=== PATIENT | male | born 1960 | race Caucasian/White ===

== ENCOUNTER → 2019-02-11 10:42 | Outpatient (CLI) | payer OTHER, SELFPAY ==
[2019-02-11 11:41] LABS: Absolute Lymphocyte Count 1.32 X10^3/ul (0.83-4.51); Absolute Neutrophil Count 4.2 X10^3/uL (2.0-7.7); Basophil# 0.04 X10^3/uL; Basophil% 0.6 % (0-1); Eosinophil# 0.17 X10^3/uL; Eosinophils% 2.7 % (0-5); Hematocrit 47.1 % (40-54); Hemoglobin 15.9 g/dl (13.0-16.5); Lymphocyte # 1.32 X10^3/ul (4.0); Lymphocyte % 21.1 % (19-41); Mean Corp Hgb Conc 33.8 g/gl (32-36); Mean Corpuscular Hgb 31.2 pg (27.0-32.0); Mean Corpuscular Volume 92.5 fL (80-94); Mean Platelet Vol. 10.9 fl (6.2-12.0); Neutrophil % 67.3 % (47-70); Platelet Count 239 K/mm3 (150-450); RBC Distribution Width CV 13.3 % (11.6-14.6); RBC Distribution Width SD 45.3 fl (35.1-43.9); Red Blood Count 5.09 M/mm3 (4.6-6.2); White Blood Count 6.3 K/mm3 (4.4-11.0)
[2019-02-11 11:45] LABS: POSITIVE COUNT NO; POSITIVE DIFFERENTIAL NO; POSITIVE MORPHOLOGY NO
[2019-02-11 11:57] LABS: Hemoglobin A1c 9.4 % (4.2-6.3)
[2019-02-11 11:59] LABS: Microalbumin,Random Urine < 5.0 mg/L (NO RANGE EST.)
[2019-02-11 12:15] LABS: ALB/GLOB Ratio 1.1 RATIO (0.9-2.4); AST(SGOT) 18 U/L (15-37); Alanine Aminotransfer ALT/SGPT 25 U/L (16-61); Albumin, Serum 3.5 g/dL (3.2-5.0); Alkaline Phosphatase 90 U/L (45-117); Anion Gap 7 (5-15); BUN 15 mg/dL (7-18); BUN/Creat Ratio 17.6 RATIO (10-20); Calcium,Total 8.5 mg/dL (8.5-10.1); Chloride 106 mmol/L (98-107); Cholesterol 192 mg/dL (200); Creatinine, Serum 0.85 mg/dL (0.70-1.30); EST Glomerular Filtration Rate 99 mL/min (>60); Est Glom Filt Rate - Afr Amer 119 mL/min (>60); Globulin 3.2 g/dL (2.2-4.2); Glucose 245 mg/dL (74-106); High Density Lipoprotein 57 mg/dL; Potassium 4.6 mmol/L (3.5-5.1); Protein, Total 6.7 g/dL (6.4-8.2); Sodium Level 139 mmol/L (136-145); T4 Free Direct 0.97 ng/dL (0.76-1.46); Thyroid Stim Hormone (TSH) 1.45 uIU/mL (0.358-3.74); Triglycerides 91 mg/dL; Very Low Density Lipoprotein 18 mg/dL (5-40)
[2019-02-11 12:16] LABS: T3 Total - Triiodothyronine 1.11 ng/mL (0.6-1.81)
== END ==
PROVIDERS: Family Provider Family Medicine; PCP Family Medicine; Referring Provider Family Medicine; Visit Provider Family Medicine
DX: E11.9 Type 2 diabetes mellitus without complications (principal); E03.9 Hypothyroidism, unspecified; E78.5 Hyperlipidemia, unspecified; E66.9 Obesity, unspecified; R53.82 Chronic fatigue, unspecified
CPT/HCPCS: 36415; 80053; 80061; 82043; 82570; 83036; 84439; 84443; 84480; 85025

== ENCOUNTER → 2019-09-27 11:25 | Outpatient (CLI) | payer OTHER, SELFPAY ==
[2019-09-27 12:48] LABS: Anion Gap 6 (5-15); BUN 18 mg/dL (7-18); BUN/Creat Ratio 20.7 RATIO (10-20); Calcium,Total 8.8 mg/dL (8.5-10.1); Chloride 110 mmol/L (98-107); Creatinine, Serum 0.87 mg/dL (0.70-1.30); EST Glomerular Filtration Rate 96 mL/min (>60); Est Glom Filt Rate - Afr Amer 116 mL/min (>60); Glucose 110 mg/dL (74-106); Potassium 3.6 mmol/L (3.5-5.1); Sodium Level 141 mmol/L (136-145)
[2019-09-27 13:18] LABS: Hemoglobin A1c 9.2 % (4.2-6.3)
== END ==
PROVIDERS: Family Provider Family Medicine; PCP Family Medicine
DX: E10.65 Type 1 diabetes mellitus with hyperglycemia (principal); E03.9 Hypothyroidism, unspecified; E78.00 Pure hypercholesterolemia, unspecified; Z96.41 Presence of insulin pump (external) (internal)
CPT/HCPCS: 36415; 80048; 83036

== ENCOUNTER → 2020-05-25 09:49 | Outpatient (CLI) | payer OTHER, SELFPAY ==
[2020-05-25 10:53] LABS: Absolute Lymphocyte Count 1.32 X10^3/uL (0.83-4.51); Absolute Neutrophil Count 3.8 X10^3/uL (2.0-7.7); Basophil# 0.03 X10^3/uL; Basophil% 0.5 % (0-1); Eosinophil# 0.17 X10^3/uL; Eosinophils% 2.8 % (0-5); Hematocrit 51.3 % (40-54); Hemoglobin 16.9 g/dL (13.0-16.5); Lymphocyte # 1.32 X10^3/ul (4.0); Mean Corp Hgb Conc 32.9 g/dL (32-36); Mean Corpuscular Hgb 31.7 pg (27.0-32.0); Mean Corpuscular Volume 96.2 fL (80-94); Mean Platelet Vol. 10.6 fl (6.2-12.0); Monocyte# 0.66 X10^3/uL; NRBC Flagged by Analyzer 0 % (0-5); Neutrophil # 3.78 X10^3/uL (2.7-7.7); Neutrophil % 63.2 % (47-70); Platelet Count 265 K/mm3 (150-450); RBC Distribution Width CV 12.7 % (11.6-14.6); RBC Distribution Width SD 44.8 fl (35.1-43.9); Red Blood Count 5.33 M/mm3 (4.6-6.2)
[2020-05-25 12:00] LABS: Microalbumin,Random Urine 29.9 mg/L (NO RANGE EST.); Microalbumin:Creatinine Ratio 32.7 mg/g CRE (<30 mg/g CRE)
[2020-05-25 12:12] LABS: ALB/GLOB Ratio 1.1 RATIO (0.9-2.4); AST(SGOT) 19 U/L (15-37); Alanine Aminotransfer ALT/SGPT 31 U/L (16-61); Albumin, Serum 3.8 g/dL (3.2-5.0); Alkaline Phosphatase 142 U/L (45-117); Anion Gap 4 (5-15); BUN 11 mg/dL (7-18); BUN/Creat Ratio 12.2 RATIO (10-20); Calcium,Total 9.2 mg/dL (8.5-10.1); Chloride 107 mmol/L (98-107); Cholesterol 182 mg/dL (200); EST Glomerular Filtration Rate 92 mL/min (>60); Est Glom Filt Rate - Afr Amer 111 mL/min (>60); Globulin 3.6 g/dL (2.2-4.2); Glucose 41 mg/dL (74-106); High Density Lipoprotein 50 mg/dL; Potassium 4.2 mmol/L (3.5-5.1); Protein, Total 7.4 g/dL (6.4-8.2); Sodium Level 140 mmol/L (136-145); Thyroid Stim Hormone (TSH) 1.48 uIU/mL (0.358-3.74); Triglycerides 181 mg/dL; Very Low Density Lipoprotein 36 mg/dL (5-40)
== END ==
PROVIDERS: PCP Family Medicine
DX: E10.65 Type 1 diabetes mellitus with hyperglycemia (principal); E03.9 Hypothyroidism, unspecified; E78.00 Pure hypercholesterolemia, unspecified; Z96.41 Presence of insulin pump (external) (internal)
CPT/HCPCS: 36415; 80053; 80061; 82043; 82570; 83036; 84443; 85025

== ENCOUNTER → 2020-11-03 12:46 | Outpatient (CLI) | payer OTHER, SELFPAY ==
[2020-11-03 13:44] LABS: Anion Gap 5 (5-15); BUN 19 mg/dL (7-18); BUN/Creat Ratio 21.6 RATIO (10-20); Calcium,Total 8.6 mg/dL (8.5-10.1); Chloride 105 mmol/L (98-107); Creatinine, Serum 0.88 mg/dL (0.70-1.30); EST Glomerular Filtration Rate 95 mL/min (>60); Est Glom Filt Rate - Afr Amer 114 mL/min (>60); Glucose 210 mg/dL (74-106); Potassium 3.8 mmol/L (3.5-5.1); Sodium Level 136 mmol/L (136-145)
[2020-11-03 13:47] LABS: Microalbumin,Random Urine < 5.0 mg/L (NO RANGE EST.)
[2020-11-03 13:51] LABS: Hemoglobin A1c 9.3 % (3.8-5.6)
== END ==
PROVIDERS: PCP Family Medicine
DX: E10.65 Type 1 diabetes mellitus with hyperglycemia (principal); Z96.41 Presence of insulin pump (external) (internal); E03.9 Hypothyroidism, unspecified; E10.40 Type 1 diabetes mellitus with diabetic neuropathy, unspecified
CPT/HCPCS: 36415; 80048; 82043; 82570; 83036

== ENCOUNTER → 2021-05-03 11:38 | Outpatient (CLI) | payer OTHER, SELFPAY ==
[2021-05-03 13:04] LABS: Hemoglobin A1c 10.1 % (3.8-5.6)
[2021-05-03 13:12] LABS: Anion Gap 8 (5-15); BUN 23 mg/dL (7-18); BUN/Creat Ratio 26.5 RATIO (10-20); Calcium,Total 8.7 mg/dL (8.5-10.1); Chloride 101 mmol/L (98-107); Creatinine, Serum 0.87 mg/dL (0.70-1.30); EST Glomerular Filtration Rate 96 mL/min (>60); Est Glom Filt Rate - Afr Amer 116 mL/min (>60); Glucose 219 mg/dL (74-106); Potassium 4.4 mmol/L (3.5-5.1); Sodium Level 136 mmol/L (136-145); Thyroid Stim Hormone (TSH) 2.07 uIU/mL (0.358-3.74)
== END ==
PROVIDERS: PCP Family Medicine
DX: E10.65 Type 1 diabetes mellitus with hyperglycemia (principal); Z96.41 Presence of insulin pump (external) (internal); E03.9 Hypothyroidism, unspecified; E78.00 Pure hypercholesterolemia, unspecified
CPT/HCPCS: 36415; 80048; 83036; 84443

== ENCOUNTER 2021-10-14 14:20 | Emergency (ER) | payer OTHER, SELFPAY ==
[2021-10-14 14:21] VITALS: BP 122/83; PULSE 99; RESP 18; TEMP 35.8; O2SAT 100; BMI 29.5
--- NOTE | 2021-10-14 14:39 | EDS_ITS ---
HPI History of Present Illness Chief Complaint: Weakness Detail of Chief Complaint: Weakness, cough, fever Informant: patient Narrative Narrative: Patient presents with symptoms of weakness and cough and intermittent headache for the last week. Patient states initially when his symptoms started he had fever up to 103. Patient has not had his COVID-vaccine. He denies any COVID exposures. He is a type I diabetic. Patient states his blood sugars have been running in the 150s. He is complaining of some nausea and upset stomach. He denies abdominal pain. He denies vomiting or diarrhea. [facility] Medical History (Updated 10/14/21 @ 15:[address] Leonela Rice, DO) Diabetes Allergy/AdvReac Type Severity Reaction Status Date / Time No Known Allergies Allergy Verified 10/14/21 14:23 Social History Smoking Status: Never smoker ROS ROS ED ROS Narrative Loss of taste Constitutional Constitutional ED: Reports systems reviewed and no addt'l complaints, except as documented and fever(s); Denies body ache(s), change in weight or chills Eyes Eyes: Denies acute decrease in peripheral vision, change in vision, double vision or loss of vision ENT ENT ED: Reports none; Denies ear pain, lip swelling, loss taste/smell, neck pain, otalgia or sore throat Cardiovascular Cardiovascular: Reports none; Denies abdominal pain, chest pain with activity, leg edema, lightheadedness, palpitations, rapid heart rate or syncope Respiratory/Chest Respiratory/Chest: Reports none and cough; Denies change in mental status, dry cough, dyspnea, hemoptysis, shortness of breath at rest or shortness of breath with exertion Gastrointestinal Gastrointestinal: Reports none; Denies abdominal pain, change in stool character, diarrhea, hematemesis, hematochezia, melena, rectal bleeding or vomiting Genitourinary Genitourinary ED: Reports none; Denies abdominal discomfort, anuria, dysuria, genital pain or polyuria Musculoskeletal Musculoskeletal: Reports none; Denies arthralgias, back pain, difficulty walking, extremity pain, muscle weakness or myalgias Integumentary Reports none; Denies abscess or rash Neurologic Neurologic: Reports none, headache(s) and weakness; Denies abnormal gait, confusion, focal weakness, frequent falls, loss of vision, numbness, paresthesias, radicular pain or vertigo Psychiatric Psychiatric: Reports systems reviewed and no addt'l complaints, except as documented and none; Denies behavioral changes, confusion, difficulty concentrating, hallucinations, suicidal ideation, tactile hallucinations or vi sual hallucinations Endocrine Endocrinology: Denies none, cold intolerance, excessive sweating, fatigue or heat intolerance Hematologic/Lymphatic Hematologic/Lymphatic: Reports none; Denies anemia, easy bleeding or easy bruising Allergic/Immunologic Allergic/Immunologic ED: Denies as per HPI, none, lip swelling, mouth swelling, throat swelling, tongue swelling or hives EXAM Physical Exam Const Vital Signs: 10/14/21 14:21 10/14/21 14:51 Temperature 96.5 F L Temperature Source Temporal Pulse Rate 99 Respiratory Rate 18 Respiratory Pattern Normal Blood Pressure 122/83 H Blood Pressure Mean 96 Pulse Ox 100 Oxygen Delivery Method Room Air Positive well nourished and well developed General Appearance ED: well developed and NAD HEENT Reports TM's clear and moist mucous membranes normocephalic and atraumatic; Negative for trauma or tenderness Tympanic Membrane ED: Yes TM's clear Eyes PERRL and EOMs intact bilaterally General Eye ED: Negative for pale conjunctiva or scleral icterus Neck no lymphadenopathy, supple and no JVD General: Negative for tenderness Chest Wall inspection of chest normal and palpation of chest normal Chest: Negative for tenderness Resp normal respiratory effort and clear to auscultation bilaterally Effort and Inspection: Negative for respiratory distress or pain with movement Auscultation: Negative for rhonchi, wheezes or diminished lung sounds Cardio regular rate, regular rhythm, S1 normal heart sound, S2 normal heart sound and no murmurs Peripheral Pulses: pulses 2+ throughout GI normal to inspection, nondistended, normoactive bowel sounds, soft to palpation, non-tender, non-distended and no masses Back/Spine no CVA tenderness and no thoracic nor lumbar tenderness Extremity normal to inspection General Extremety ED: Negative for edema General Extremity: Negative for edema Neuro oriented x3, CN's II-XII intact bilaterally, no sensory deficits noted and gait normal Sensorium / Orientation: awake, alert, oriented to person, oriented to place and oriented to time Motor Exam: strength 5/5 throughout and strength abnormal Psych mental status grossly normal Skin no rashes or lesions noted and no wounds MDM MDM MDM Narrative Medical decision making narrative: Patient positive for COVID-19. His vital signs are unremarkable. He is not hypoxic or dyspneic. Given his diabetes history I will refer him for monoclonal antibody infusion. Patient advised to return if increasing shortness of breath or condition should worsen anyway. Lab Data Attestation: I reviewed the patient's lab results. Discharge Plan Triage Chief Complaint: Weakness ED Provider: Leonela Rice Dx/Rx/DC Orders Clinical Impression: COVID-19 Instructions: Caring for Someone Who Has COVID-19 Primary Care Provider: Paul Hughes Referrals: Paul Hughes MD [Primary Care Provider] - 5-7 Days Disposition Disposition: Home, Self Care
[2021-10-14 15:56] VITALS: RESP 18; O2SAT 98
== END 2021-10-14 15:57 | disposition home or self-care (01) ==
PROVIDERS: Emergency Provider Emergency Medicine; PCP Family Medicine; Visit Provider Emergency Medicine
DX: U07.1 COVID-19 (principal); E10.9 Type 1 diabetes mellitus without complications; Z79.4 Long term (current) use of insulin
CPT/HCPCS: 87426; 99282

== ENCOUNTER 2021-10-15 16:16 | Outpatient (CLI) | payer OTHER, SELFPAY ==
[2021-10-15 16:31] VITALS: BP 125/73; PULSE 97; RESP 18; TEMP 36.8; O2SAT 99; BMI 29.5
[2021-10-15] MEDS: 0.9% Saline Lock 10 ML Syringe IV (16:37)
[2021-10-15 17:27] VITALS: BP 118/72; PULSE 81; RESP 16; TEMP 36.9; O2SAT 99
[2021-10-15 18:23] VITALS: BP 131/75; PULSE 93; RESP 16; TEMP 36.9; O2SAT 100
== END 2021-10-15 23:59 | disposition home or self-care (01) ==
LOC: MS3OUT 16:16 → MS3 16:17
PROVIDERS: PCP Family Medicine; Referring Provider Emergency Medicine; Visit Provider Emergency Medicine
DX: U07.1 COVID-19 (principal)
CPT/HCPCS: J7050; M0243; A4216; Q0244

== ENCOUNTER → 2022-05-08 | Outpatient (CLI) | payer OTHER, SELFPAY ==
[2022-05-08 13:39] LABS: Hemoglobin A1c 9.6 % (3.8-5.6)
[2022-05-08 13:51] LABS: Microalbumin:Creatinine Ratio 5.4 mg/g CRE (<30 mg/g CRE)
== END | disposition home or self-care (01) ==
DX: E10.3299 Type 1 diabetes mellitus with mild nonproliferative diabetic retinopathy without macular edema, unspecified eye (principal)
CPT/HCPCS: 36415; 82043; 82570; 83036

== ENCOUNTER → 2022-05-09 | Outpatient (CLI) | payer OTHER, SELFPAY ==
[2022-05-09 15:23] LABS: Anion Gap 7 (5-15); BUN 22 mg/dL (7-18); BUN/Creat Ratio 23.1 RATIO (10-20); Calcium,Total 8.5 mg/dL (8.5-10.1); Chloride 106 mmol/L (98-107); Creatinine, Serum 0.95 mg/dL (0.70-1.30); EST Glomerular Filtration Rate 86 mL/min (>60); Est Glom Filt Rate - Afr Amer 104 mL/min (>60); Glucose 226 mg/dL (74-106); Potassium 3.8 mmol/L (3.5-5.1); Sodium Level 138 mmol/L (136-145)
== END | disposition home or self-care (01) ==
DX: E10.3299 Type 1 diabetes mellitus with mild nonproliferative diabetic retinopathy without macular edema, unspecified eye (principal)
CPT/HCPCS: 80048

== ENCOUNTER 2022-10-03 01:05 | Emergency (ER) | payer OTHER, SELFPAY ==
[2022-10-03 01:06] VITALS: BP 170/87; PULSE 101; RESP 16; TEMP 36.4; O2SAT 98; BMI 27.5
[2022-10-03 01:09] VITALS: O2SAT 98
--- NOTE | 2022-10-03 01:09 | EKG12_ITS ---
Test Reason : CP Blood Pressure : / mmHG Vent. Rate : 096 BPM Atrial Rate : 096 BPM P-R Int : 144 ms QRS Dur : 064 ms QT Int : 336 ms P-R-T Axes : 056 039 032 degrees QTc Int : 424 ms Normal sinus rhythm Septal infarct , age undetermined Abnormal ECG Confirmed by MEGAN BRUNO, KIRAN ([id number]), news editor JHONNY BRAR ([id number]) on 10/08/2022 12:25:07 PM Referred By: AVERY Confirmed By:KIRAN GUZMAN MD
--- NOTE | 2022-10-03 01:09 | RAD_ITS ---
EXAM: XR CHEST, 1 VIEW CLINICAL INDICATION: chest pain TECHNIQUE: Frontal view of the chest. This report was created using [employer] report generation technology. COMPARISON: None. FINDINGS: LUNGS AND PLEURAL SPACES: Slightly increased density overlies the anterior right fifth and sixth ribs, most likely due to sclerosis from old rib fractures; infiltrate such as pneumonia felt less likely. No pneumothorax. No effusion. HEART: Unremarkable. Cardiac silhouette not enlarged. Normal pulmonary vasculature. MEDIASTINUM: Thoracic aorta is minimally elongated. BONES/JOINTS: Multiple well-healed right rib fractures are present. There is also a well-healed fracture of the lateral left seventh rib. Thoracic degenerative spurring. SOFT TISSUES: Unremarkable. RAD/Chest 1 View (Portable) IMPRESSION: Slightly increased density overlying the anterior right fifth and sixth ribs, most likely due to old rib fractures with pneumonia felt less likely. Follow-up PA and lateral views may be of benefit for further evaluation, if clinical problems persist. Electronically Signed: Emigdio Abdalla MD at 2:22 EST ,
[2022-10-03] MEDS: Aspirin 81 MG TAB.CHEW 324 MG PO (01:14)
[2022-10-03 01:19] LABS: Absolute Lymphocyte Count 0.81 X10^3/uL (0.83-4.51); Absolute Neutrophil Count 8.4 X10^3/uL (2.0-7.7); Basophil# 0.05 X10^3/uL; Basophil% 0.5 % (0-1); Hemoglobin 15.6 g/dL (13.0-16.5); Lymphocyte # 0.81 X10^3/ul (0.83-4.51); Lymphocyte % 8.1 % (19-41); Mean Corp Hgb Conc 34.7 g/dL (32-36); Mean Corpuscular Hgb 32.2 pg (27.0-32.0); Mean Corpuscular Volume 92.8 fL (80-94); Mean Platelet Vol. 9.7 fl (6.2-12.0); Monocyte# 0.64 X10^3/uL; Monocyte% 6.4 % (0-10); NRBC Flagged by Analyzer 0 % (0-5); Neutrophil % 83.8 % (47-70); Platelet Count 249 K/mm3 (150-450); RBC Distribution Width CV 12.8 % (11.6-14.6); RBC Distribution Width SD 43.7 fl (35.1-43.9); Red Blood Count 4.85 M/mm3 (4.6-6.2)
--- NOTE | 2022-10-03 01:24 | ED.VIS.CHEST ---
HPI History of Present Illness Chief Complaint: Chest Pain Narrative Narrative: 62-year-old male past medical history of diabetes presents with chest pain that began around 1115 last evening, almost 2 hours ago. States it lasted until about midnight so 45 minutes of a dull achy pain that went across his chest. He denies any nausea or vomiting. No diaphoresis. He may have felt slightly short of breath. He has family history of hypertension and notes that his blood pressure has been elevated the last few times but does not currently take any medications for it. He denies any family history of sudden or early coronary artery disease. No leg swelling. He is currently pain-free. He presents because of the chest pain that he experienced across his chest this evening. There were no exacerbating or alleviating factors and it resolved on its own. [facility] Medical History Diabetes Home Medications insulin lispro 100 unit/mL subcutaneous solution (Humalog U-100 Insulin) 10/15/21 [History Last Taken Unknown] levothyroxine 125 mcg tablet (Synthroid) 125 mcg PO DAILY 10/15/21 [History Last Taken Unknown] simvastatin 40 mg tablet 40 mg PO QHS 10/15/21 [History Last Taken Unknown] Allergy/AdvReac Type Severity Reaction Status Date / Time No Known Allergies Allergy Verified 10/03/22 01:08 Social History Smoking Status: Never smoker ROS ROS ED ROS Narrative Constitutional: No fever, no chills. HEENT: No sore throat. No neck pain. No loss of vision. No rhinorrhea. Cardiovascular: Dull, achy across the chest type of chest pain. Resolved after 45 minutes. No palpitations. No pedal edema. Respiratory: No cough, minimal to mild shortness of breath. Abdominal: No abdominal pain. No nausea. No vomiting. Genitourinary: No dysuria. No hematuria. Musculoskeletal: No myalgias. No arthralgias. Neurologic: No headaches. No dizziness. No lightheadedness. Skin: No rash. No change in color. Psychiatric: No depression. No anxiety. EXAM Physical Exam Narrative Exam Narrative: Afebrile. Vital signs noted. HEENT: Normocephalic. Atraumatic. PERRL, EOMI. Neck soft and supple. No point tenderness or step off. Cardiovascular: Regular rate and rhythm with intermittent tachycardia. No murmurs, rubs, or gallops appreciated. Respiratory: No tachypnea. Lungs clear to auscultation bilaterally. Gastrointestinal: Abdomen soft, nontender, with normoactive bowel sounds. No rebound or guarding. Neurological: Awake. Alert. Nonfocal, nonlateralizing. Skin: No rash. Normal color. No pallor. Musculoskeletal: No pedal edema. Full range of motion extremities. Const Vital Signs: 10/03/22 01:06 10/03/22 01:08 10/03/22 01:09 Temperature 97.6 F L Temperature Source Temporal Pulse Rate 101 H Respiratory Rate 16 Respiratory Effort Normal Non-Labored Blood Pressure 170/87 H Blood Pressure Mean 114 Pulse Ox 98 98 Oxygen Delivery Method Room Air Room Air 10/03/22 02:06 10/03/22 03:23 Temperature Temperature Source Pulse Rate 94 97 Respiratory Rate 12 12 Respiratory Effort Blood Pressure 144/91 H 129/71 H Blood Pressure Mean 108 90 Pulse Ox 95 98 Oxygen Delivery Method Room Air Room Air Heart Score History: Slightly/Non-Suspicious ECG: Normal Age: >45 - <65 years Risk Factors: 1 or 2 Risk Factors Troponin: </= Normal Limit Score: 2 MDM MDM MDM Narrative Medical decision making narrative: Chest pain work-up was pursued. He was administered aspirin orally. His EKG interpreted by myself demonstrates normal sinus rhythm at 96 bpm without ectopy or acute ST changes. No STEMI. CBC shows normal white count of 10.0 with hemoglobin normal at 15.6, hematocrit 45.0. Platelet count normal at 249. Pulse ox is 98% on room air without evidence of hypoxia. CMP shows sodium of 129 and a chloride of 95. Glucose is elevated at 684 but he has a normal anion gap of 14. BUN of 33 and creatinine 1.25, normal. He was bolused normal saline 1 L intravenously. He elected to give himself a bolus of 10 units from his insulin pump. His initial high-sensitivity troponin is 5. Second troponin is pending. Glucose will be rechecked after IV fluids and his own insulin pump bolus. Blood pressure has come down to 129/71 without any medication. Chest x-ray interpreted by myself shows no acute process. Second troponin is 6 for a delta troponin of 1. At this point in time, I feel he can be discharged safely home with follow-up to his primary care provider. Regarding his blood sugar, his bedside glucose is in the 500s. He will be bolused himself from his insulin pump. It is headed in the right direction and he feels well enough to go home. I feel he can be discharged safely home with follow-up. He is to call his electrical designer drafter later today to get better control of his elevated blood sugars. Once again, I do not feel he is in diabetic ketoacidosis as he had a normal anion gap. Return instructions to the emergency department were reviewed. Disposition is discharged home in stable condition. Lab Data Attestation: I reviewed the patient's lab results. Labs: Laboratory Results - last 24 hr 10/03/22 10/03/22 10/03/22 01:15 01:15 02:00 WBC 10.0 RBC 4.85 Hgb 15.6 Hct 45.0 MCV 92.8 MCH 32.2 H MCHC 34.7 RDW Std Deviation 43.7 RDW Coeff of Meme 12.8 Plt Count 249 MPV 9.7 Immature Gran % (Auto) 0.200 Neut % (Auto) 83.8 H Lymph % (Auto) 8.1 L Kern % (Auto) 6.4 Eos % (Auto) 1.0 Baso % (Auto) 0.5 Absolute Neuts (auto) 8.4 H Absolute Lymphs (auto) 0.81 L Nucleated RBC % 0 Sodium 129 L Potassium 5.1 Chloride 95 L Carbon Dioxide 20.0 L Anion Gap 14 BUN 33 H Creatinine 1.25 Estim Creat Clear Calc 62.84 Est GFR (MDRD) Af Amer 76 Est GFR (MDRD) Non-Af 63 BUN/Creatinine Ratio 26.4 H Glucose 684 H* Calcium 9.0 Total Bilirubin 1.50 H AST 30 ALT 38 Alkaline Phosphatase 196 H Troponin I High Sens 5 Total Protein 7.3 Albumin 4.1 Globulin 3.2 Albumin/Globulin Ratio 1.3 POC Glucose > 500 H* 10/03/22 10/03/22 03:22 03:42 WBC RBC Hgb Hct MCV MCH MCHC RDW Std Deviation RDW Coeff of Meme Plt Count MPV Immature Gran % (Auto) Neut % (Auto) Lymph % (Auto) Kern % (Auto) Eos % (Auto) Baso % (Auto) Absolute Neuts (auto) Absolute Lymphs (auto) Nucleated RBC % Sodium Potassium Chloride Carbon Dioxide Anion Gap BUN Creatinine Estim Creat Clear Calc Est GFR (MDRD) Af Amer Est GFR (MDRD) Non-Af BUN/Creatinine Ratio Glucose Calcium Total Bilirubin AST ALT Alkaline Phosphatase Troponin I High Sens 6 Total Protein Albumin Globulin Albumin/Globulin Ratio POC Glucose > 500 H* Radiography Diagnostic Testing: Clinical Impression(s) from Imaging Studies Chest X-Ray 10/03/22 01:09 IMPRESSION: Slightly increased density overlying the anterior right fifth and sixth ribs, most likely due to old rib fractures with pneumonia felt less likely. Follow-up PA and lateral views may be of benefit for further evaluation, if clinical problems persist. Electronically Signed: Emigdio Abdalla MD at 2:22 EST , Discharge Plan Triage Chief Complaint: Chest Pain ED Provider: Alfredo Bolaños Dx/Rx/DC Orders Clinical Impression: Chest pain, Hyperglycemia due to diabetes mellitus Prescriptions: No Action simvastatin 40 mg tablet 40 mg PO QHS Label Comments: TAKE 1 TABLET BY MOUTH AT BEDTIME levothyroxine [Synthroid] 125 mcg tablet 125 mcg PO DAILY Label Comments: TAKE 1 TABLET BY MOUTH DAILY insulin lispro [Humalog U-100 Insulin] 100 unit/mL solution Label Comments: for use up to 120 units daily Primary Care Provider: Care Physician,No Primary Referrals: Care Physician,No Primary [Primary Care Provider] - Activity Restrictions/Additional Instructions: Call your electrical designer drafter today to get better control of your elevated blood sugars. Disposition Disposition: Home, Self Care
[2022-10-03 01:47] LABS: ALB/GLOB Ratio 1.3 RATIO (0.9-2.4); AST(SGOT) 30 U/L (15-37); Alanine Aminotransfer ALT/SGPT 38 U/L (16-61); Albumin, Serum 4.1 g/dL (3.2-5.0); Alkaline Phosphatase 196 U/L (45-117); Anion Gap 14 (5-15); BUN 33 mg/dL (7-18); BUN/Creat Ratio 26.4 RATIO (10-20); Chloride 95 mmol/L (98-107); Creatinine, Serum 1.25 mg/dL (0.70-1.30); EST Glomerular Filtration Rate 63 mL/min (>60); Est Glom Filt Rate - Afr Amer 76 mL/min (>60); Estimated Creatinine Clearance 62.84 ml/min; Globulin 3.2 g/dL (2.2-4.2); Glucose 684 mg/dL (74-106); Potassium 5.1 mmol/L (3.5-5.1); Protein, Total 7.3 g/dL (6.4-8.2); Sodium Level 129 mmol/L (136-145); Troponin-I HS (w/2H Reflex) 5 pg/mL (3.0-78.0)
[2022-10-03] MEDS: 0.9% Normal Saline 1,000 ML 999 ML IV (02:02)
[2022-10-03 02:06] VITALS: BP 144/91; PULSE 94; RESP 12; O2SAT 95
[2022-10-03 02:20] LABS: Bedside Glucose > 500 mg/dL (74-106)
[2022-10-03 03:17] LABS: Reflex Troponin-HS? (from REC) Y
[2022-10-03 03:23] VITALS: BP 129/71; PULSE 97; RESP 12; O2SAT 98
[2022-10-03 04:01] LABS: Bedside Glucose > 500 mg/dL (74-106)
[2022-10-03 04:11] LABS: Troponin-I HS 6 pg/mL (3.0-78.0)
[2022-10-03] MEDS: Ondansetron 4 MG/2 ML Vial IV (04:21)
[2022-10-03 04:25] VITALS: BP 137/75; PULSE 81; RESP 16; O2SAT 96
== END 2022-10-03 04:26 | disposition home or self-care (01) ==
PROVIDERS: Emergency Provider Emergency Medicine; Visit Provider Emergency Medicine
DX: E11.65 Type 2 diabetes mellitus with hyperglycemia (principal); Z96.41 Presence of insulin pump (external) (internal); R07.9 Chest pain, unspecified
CPT/HCPCS: 71045; 80053; 82962; 84484; 85025; 93005; 99284; A4216; J2405

== ENCOUNTER → 2023-02-28 | Outpatient (CLI) | payer OTHER, SELFPAY ==
[2023-02-28 16:56] LABS: Hematocrit 48.4 % (40-54); Mean Corp Hgb Conc 33.1 g/dL (32-36); Mean Corpuscular Hgb 30.8 pg (27.0-32.0); Mean Corpuscular Volume 93.1 fL (80-94); Mean Platelet Vol. 10.5 fl (6.2-12.0); Platelet Count 282 K/mm3 (150-450); RBC Distribution Width CV 13.3 % (11.6-14.6); RBC Distribution Width SD 45.1 fl (35.1-43.9); White Blood Count 7.3 K/mm3 (4.4-11.0)
[2023-02-28 17:44] LABS: Hemoglobin A1c 8.9 % (3.8-5.6)
[2023-02-28 17:48] LABS: ALB/GLOB Ratio 1.1 RATIO (0.9-2.4); AST(SGOT) 14 U/L (15-37); Alanine Aminotransfer ALT/SGPT 24 U/L (16-61); Albumin, Serum 3.8 g/dL (3.2-5.0); Alkaline Phosphatase 100 U/L (45-117); Anion Gap 5 (5-15); BUN 22 mg/dL (7-18); Calcium,Total 9.1 mg/dL (8.5-10.1); Chloride 103 mmol/L (98-107); Cholesterol 188 mg/dL (200); EST Glomerular Filtration Rate 81 mL/min (>60); Est Glom Filt Rate - Afr Amer 98 mL/min (>60); Globulin 3.4 g/dL (2.2-4.2); Glucose 287 mg/dL (74-106); High Density Lipoprotein 71 mg/dL; Potassium 4.1 mmol/L (3.5-5.1); Protein, Total 7.2 g/dL (6.4-8.2); Sodium Level 136 mmol/L (136-145); Triglycerides 70 mg/dL; Very Low Density Lipoprotein 14 mg/dL (5-40)
== END | disposition home or self-care (01) ==
LOC: LAB 16:27
DX: E10.3299 Type 1 diabetes mellitus with mild nonproliferative diabetic retinopathy without macular edema, unspecified eye (principal)
CPT/HCPCS: 36415; 80053; 80061; 83036; 85027

== ENCOUNTER → 2023-12-23 | Outpatient (CLI) | payer OTHER, SELFPAY ==
[2023-12-23 15:44] LABS: Microalbumin,Random Urine 8.8 mg/L (NO RANGE EST.); Microalbumin:Creatinine Ratio 7.9 mg/g CRE (<30 mg/g CRE)
[2023-12-23 16:48] LABS: Anion Gap 8 (5-15); BUN 20 mg/dL (7-18); BUN/Creat Ratio 24.8 RATIO (10-20); Chloride 107 mmol/L (98-107); Creatinine, Serum 0.81 mg/dL (0.70-1.30); EST Glomerular Filtration Rate 103 mL/min (>60); Est Glom Filt Rate - Afr Amer 125 mL/min (>60); Glucose 50 mg/dL (74-106); Potassium 3.7 mmol/L (3.5-5.1); Sodium Level 141 mmol/L (136-145); Thyroid Stim Hormone (TSH) 2.02 uIU/mL (0.358-3.74)
== END | disposition home or self-care (01) ==
LOC: LAB 14:46
DX: E10.3299 Type 1 diabetes mellitus with mild nonproliferative diabetic retinopathy without macular edema, unspecified eye (principal); E03.8 Other specified hypothyroidism; E06.3 Autoimmune thyroiditis
CPT/HCPCS: 36415; 80048; 82043; 82570; 84443

== ENCOUNTER → 2024-11-18 | Outpatient (CLI) | payer OTHER, SELFPAY ==
[2024-11-18 12:41] LABS: Hematocrit 52.3 % (40-54); Mean Corp Hgb Conc 32.5 g/dL (32-36); Mean Corpuscular Hgb 31.4 pg (27.0-32.0); Mean Corpuscular Volume 96.7 fL (80-94); Mean Platelet Vol. 11.2 fl (6.2-12.0); Platelet Count 186 K/mm3 (150-450); RBC Distribution Width CV 13.3 % (11.6-14.6); RBC Distribution Width SD 47.8 fl (35.1-43.9); Red Blood Count 5.41 M/mm3 (4.6-6.2); White Blood Count 8.7 K/mm3 (4.4-11.0)
[2024-11-18 13:11] LABS: Microalbumin,Random Urine 67.2 mg/L (NO RANGE EST.); Microalbumin:Creatinine Ratio 23.7 mg/g CRE (<30 mg/g CRE)
[2024-11-18 13:15] LABS: AST(SGOT) 21 U/L (15-37); Alanine Aminotransfer ALT/SGPT 26 U/L (16-61); Albumin, Serum 3.6 g/dL (3.2-5.0); Alkaline Phosphatase 108 U/L (45-117); Anion Gap 8 (5-15); BUN 19 mg/dL (7-18); BUN/Creat Ratio 19.2 RATIO (10-20); Calcium,Total 8.9 mg/dL (8.5-10.1); Chloride 105 mmol/L (98-107); Cholesterol 180 mg/dL (200); Creatinine, Serum 0.99 mg/dL (0.70-1.30); EST Glomerular Filtration Rate 81 mL/min (>60); Est Glom Filt Rate - Afr Amer 98 mL/min (>60); Globulin 3.7 g/dL (2.2-4.2); Glucose 322 mg/dL (74-106); High Density Lipoprotein 55 mg/dL; Potassium 4.4 mmol/L (3.5-5.1); Protein, Total 7.3 g/dL (6.4-8.2); Sodium Level 134 mmol/L (136-145); Thyroid Stim Hormone (TSH) 0.962 uIU/mL (0.358-3.740); Triglycerides 139 mg/dL; Very Low Density Lipoprotein 28 mg/dL (5-40)
== END | disposition home or self-care (01) ==
LOC: LAB 11:53
DX: E10.3299 Type 1 diabetes mellitus with mild nonproliferative diabetic retinopathy without macular edema, unspecified eye (principal)
CPT/HCPCS: 36415; 80053; 80061; 82043; 82570; 84443; 85027

== ENCOUNTER → 2025-08-12 | Outpatient (CLI) | payer OTHER, SELFPAY ==
[2025-08-12 17:47] LABS: Anion Gap 18 (5-15); BUN 14 mg/dL (4-19); BUN/Creat Ratio 20.2 RATIO (10-20); Calcium,Total 8.8 mg/dL (7.6-11.0); Carbon Dioxide 15.3 mmol/L (21.0-32.0); Chloride 105 mmol/L (98-108); Glucose 83 mg/dL (70-99); Potassium 4.0 mmol/L (3.3-5.1)
== END | disposition home or self-care (01) ==
LOC: LAB 15:57
DX: E06.3 Autoimmune thyroiditis (principal); E10.3299 Type 1 diabetes mellitus with mild nonproliferative diabetic retinopathy without macular edema, unspecified eye
CPT/HCPCS: 36415; 80048; 84443